=== PATIENT | female | born 1965 | race Caucasian/White ===

== ENCOUNTER 2017-01-20 07:21 | Day surgery (SDC) | payer OTHER ==
[~2017-01-20] VITALS: Ht 149.9 cm; Wt 57.6 kg
[2017-01-20] MEDS ORDERED: IRON65TA11 PO (08:21)
[2017-01-20] MEDS ORDERED: BUPIVACAINE-MPF 0.25% 30 ML VIAL INJ ONE (09:15)
[2017-01-20] MEDS ORDERED: MIDAZOLAM 2 MG/2 ML VIAL ONE ×2 (09:45→10:20)
[2017-01-20] MEDS ORDERED: fentaNYL 0.05 MG/ML VIAL ONE (09:45)
[2017-01-20] MEDS ORDERED: HYDROcodone/APAP 5/325 MG 1 TAB TAB PO PRN (10:35)
[2017-01-20] MEDS ORDERED: HYDROmorphone 1 MG/ML AMP IVP PRN (10:35)
[2017-01-20] MEDS ORDERED: MORPHINE SULFATE 4 MG/ML SYR IV PRN (10:35)
[2017-01-20] MEDS ORDERED: ONDANSETRON 4 MG/2 ML VIAL IV PRN (10:35)
[2017-01-20] MEDS ORDERED: ACETAMINOPHEN 325 MG TAB PO PRN (10:35)
[2017-01-20] MEDS ORDERED: KETOROLAC 30 MG/ML VIAL IVP SCH (10:55)
[2017-01-20] MEDS ORDERED: KETOROLAC 30 MG/ML VIAL ONE (11:04)
== END 2017-01-20 12:19 | disposition home or self-care (01) ==
LOC: MOR 07:21 → MMU 07:22 → MOR 12:19
PROVIDERS: ATTEND Surgery
DX: M89.9 Disorder of bone, unspecified (principal); D64.9 Anemia, unspecified; Z98.890 Other specified postprocedural states
CPT/HCPCS: 61500; 71010; 93005; J0690; J1885; J2250; J3010; J3490; J7060; J7120